=== PATIENT | male | born 1945 | race African-American/Black ===

== ENCOUNTER 2017-06-27 16:30 | Emergency (ER) | payer MEDICARE ==
[~2017-06-27] VITALS: Ht 170.2 cm; Wt 87.7 kg
[2017-06-27] MEDS ORDERED: HTN MED (16:36)
[2017-06-27] MEDS ORDERED: GEMF600T3 PO (16:36)
[2017-06-27] MEDS ORDERED: NAPR250T4 PO (16:36)
[2017-06-27] MEDS ORDERED: METF500T4 PO (16:44)
[2017-06-27] MEDS ORDERED: TAMS0.4C32 PO (16:44)
[2017-06-27] MEDS ORDERED: HYDR25TA PO (16:44)
[2017-06-27] MEDS ORDERED: FINA5TAB41 PO (16:44)
[2017-06-27] MEDS ORDERED: TADA5TAB PO (16:44)
[2017-06-27 16:52] LABS: GLUCOSE,POINT OF CARE 109 MG/DL (70-110)
[2017-06-27 18:13] LABS: BASOPHILS % (AUTO) 0.6 % (0.0-2.0); EOSINOPHILS % (AUTO) 5.6 % (1.0-6.0); HEMATOCRIT 43.7 % (41-53); HEMOGLOBIN 14.6 g/dL (13.5-17.5); LYMPHOCYTES # (AUTO) 2.3 K/uL (1.0-4.8); LYMPHOCYTES % (AUTO) 29.4 % (22.0-44.0); MEAN CORPUSCULAR HEMOGLOBIN 32.2 pg (26.0-34.0); MEAN CORPUSCULAR HGB CONC 33.4 G/dL (31.0-37.0); MEAN CORPUSCULAR VOLUME 97 fL (80-100); MONOCYTES % (AUTO) 12.7 % (2.0-9.0); NEUTROPHILS % (AUTO) 51.7 % (40.0-70.0); PLATELET COUNT (AUTO) 400 K/uL (150-450); RED BLOOD CELL COUNT(AUTO) 4.52 MIL/uL (4.50-5.90); RED CELL DISTRIBUTION WIDTH 13.1 % (11.5-14.5)
[2017-06-27 18:18] LABS: CALCIUM, TOTAL 9.2 mg/dL (8.8-10.5); CREATININE 1.72 mg/dL (0.60-1.30); POTASSIUM 4.3 mmol/L (3.5-5.1)
[2017-06-27 18:23] LABS: ALBUMIN 3.4 g/dL (3.4-5.0); BILIRUBIN,TOTAL 0.3 mg/dL (0.1-1.0); TOTAL PROTEIN, SERUM 6.8 g/dL (6.4-8.2)
[2017-06-27 18:32] LABS: INR 1.1 (0.9-1.1); PROTHROMBIN TIME 11.3 SEC (9.4-11.6)
[2017-06-27 20:18] LABS: APPEARANCE,URINE CLEAR (CLEAR); BILIRUBIN,URINE NEGATIVE (NEGATIVE); GLUCOSE, URINE (UA) NEGATIVE (NEGATIVE); KETONES,URINE NEGATIVE (NEGATIVE); LEUKOCYTE ESTERASE ,URINE NEGATIVE (NEGATIVE); NITRATE,URINE NEGATIVE (NEGATIVE); OCCULT BLOOD,URINE NEGATIVE (NEGATIVE); PROTEIN,URINE NEGATIVE (NEGATIVE); UROBILINOGEN,URINE 0.2 mg/dL (<=1.0)
[2017-06-27 21:19] VITALS: BP 126/83
== END 2017-06-27 22:09 | disposition short-term general hospital (02) ==
LOC: EMS 16:38
DX: I20.0 Unstable angina (principal); I10 Essential (primary) hypertension; E78.00 Pure hypercholesterolemia, unspecified; F17.210 Nicotine dependence, cigarettes, uncomplicated; Z79.899 Other long term (current) drug therapy; Z71.6 Tobacco abuse counseling
CPT/HCPCS: 82962; 93005; 99285; 99406